=== PATIENT | male | born 1935 | race African-American/Black ===

== ENCOUNTER 2019-05-12 06:21 | Inpatient (IN) | payer MEDICARE, BC ==
[2019-05-12] VITALS (21 sets, daily range): BP systolic 128–160; BP diastolic 69–120
[~2019-05-12] VITALS: Ht 185.4 cm; Wt 110.7 kg
[~2019-05-12 06:21] MED LIST: CARVEDILOL PO; CELADRIN; CRESTOR PO; DOXAZOSIN; FURO-152 PO; GLUC100017 PO; IRON PO; LACT1CAP76 PO; LISINOPRIL; LORA1TAB PO; MULTIVITAMIN PO; ONGLYZA PO; PAROXETINE; RANITIDINE; SOTALOL PO; UBID300C PO; VITAMIN E; [UNRECOGNIZED DRUG - CODE] PO
[2019-05-12] MEDS ORDERED: LIDOCAINE HCL 1% 20ML VIAL (Pyxis) INJ ONE (07:31)
[2019-05-12] MEDS ORDERED: IODIXANOL 320MG/ML 100 ML BOTTLE IV ONE (07:31)
[2019-05-12] MEDS ORDERED: FENTANYL CITRATE/PF 50MCG/ML 2ML VIAL ONE (08:29)
[2019-05-12] MEDS ORDERED: MIDAZOLAM HCL 2 MG/2 ML VIAL ONE ×2 (08:29→09:32)
[2019-05-12] MEDS ORDERED: LORA-250 PO (08:42)
[2019-05-12] MEDS ORDERED: ASPI-1497 PO (08:42)
[2019-05-12] MEDS ORDERED: LINA5TAB PO (08:42)
[2019-05-12] MEDS ORDERED: DOXA1TAB2 PO (08:42)
[2019-05-12] MEDS ORDERED: METO25TA6 PO (08:42)
[2019-05-12] MEDS ORDERED: MAGN500C4 PO (08:42)
[2019-05-12] MEDS ORDERED: GABA-531 PO (08:42)
[2019-05-12] MEDS ORDERED: NEPVIT PO (08:42)
[2019-05-12] MEDS ORDERED: ROSU20TA2 PO (08:42)
[2019-05-12] MEDS ORDERED: DULO30CA2 PO (08:42)
[2019-05-12] MEDS ORDERED: CHOL200077 PO (08:42)
[2019-05-12] MEDS ORDERED: LOSA25TA26 PO (08:42)
[2019-05-12] MEDS ORDERED: GLIM2TAB30 PO (08:42)
[2019-05-12] MEDS ORDERED: IOHEXOL-300 100 ML BOTTLE ONE (09:20)
[2019-05-12] MEDS ORDERED: CLOPIDOGREL 75MG TABLET ONE (09:50)
[2019-05-12] MEDS ORDERED: ASPIRIN 325MG EC TABLET PO ONE (09:51)
[2019-05-12] MEDS ORDERED: ACETAMINOPHEN 325MG TABLET PO PRN (10:15)
[2019-05-12] MEDS ORDERED: ATROPINE SULFATE 1MG/10ML SYR IV PRN (10:15)
[2019-05-12] MEDS ORDERED: NICARDIPINE 100MCG/ML 10ML VIAL (CATH LAB) IV ONE (10:18)
[2019-05-12] MEDS ORDERED: NITROGLYCERIN 50MCG/ML 10ML VIAL (CATH LAB) IV ONE (10:18)
[2019-05-12] MEDS ORDERED: HEPARIN SODIUM 1,000 UNIT/1ML VIAL IV ONE (10:18)
[2019-05-12] MEDS ORDERED: DEXTROSE 50% WATER 50ML SYRINGE IV PRN (13:45)
[2019-05-12] MEDS ORDERED: ACETAMINOPHEN 325MG TABLET PO NR (15:00)
[2019-05-12] MEDS: BLOOD SUGAR DIAGNOSTIC STRIP TEST SCH ×2 (16:33→20:51)
[2019-05-12] MEDS: INSULIN LISPRO 100 UNITS/ML SUBCUT SCH ×2 (16:33→20:51)
[2019-05-13 02:35] VITALS: BP 157/87
[2019-05-13 04:35] VITALS: BP 142/71
[2019-05-13] MEDS: BLOOD SUGAR DIAGNOSTIC STRIP TEST SCH (05:57)
[2019-05-13 06:50] LABS: BASOPHILS % 0.4 % (0.0-2.0); EOSINOPHILS % 3.4 % (0.0-5.0); HEMATOCRIT. 31.5 % (42.0-52.0); HEMOGLOBIN. 10.4 g/dL (14.0-18.0); LYMPHOCYTES % 23.8 % (20.0-50.0); MEAN CORPUSCULAR HEMOGLOBIN 30.8 pg (28.0-32.0); MEAN CORPUSCULAR VOLUME 93.2 fL (80.0-94.0); MEAN PLATELET VOLUME 7.9 fl (7.4-10.4); MONOCYTES % 9.4 % (2.0-8.0); PLATELET 108 x1000/uL (130-400); RED BLOOD CELL COUNT 3.38 mill/uL (4.7-6.1); RED CELL DISTRIBUTION WIDTH 12.9 % (11.6-14.6)
[2019-05-13 06:56] VITALS: BP 141/95
[2019-05-13] MEDS: INSULIN LISPRO 100 UNITS/ML SUBCUT SCH (07:20)
[2019-05-13 08:00] VITALS: BP 165/90
[2019-05-13] MEDS ORDERED: CLOPIDOGREL 75MG TABLET PO SCH (09:00)
[2019-05-13] MEDS ORDERED: ASPIRIN 325MG TABLET PO SCH (09:00)
[2019-05-13 10:00] VITALS: BP 140/81
[2019-05-13 10:42] VITALS: BP 140/81
== END 2019-05-13 13:00 | disposition home or self-care (01) | DRG 247 ==
LOC: CCL 06:21 → 3WST 06:22
PROVIDERS: ADMIT Specialist; ATTEND Specialist
PROC: 027034Z Dilation of Coronary Artery, One Artery with Drug-eluting Intraluminal Device, Percutaneous Approach (ICD-10-PCS; principal; 2019-05-12)
PROC: 4A023N7 Measurement of Cardiac Sampling and Pressure, Left Heart, Percutaneous Approach (ICD-10-PCS; 2019-05-12)
PROC: B211YZZ Fluoroscopy of Multiple Coronary Arteries using Other Contrast (ICD-10-PCS; 2019-05-12)
PROC: B213YZZ Fluoroscopy of Multiple Coronary Artery Bypass Grafts using Other Contrast (ICD-10-PCS; 2019-05-12)
DX: T82.855A Stenosis of coronary artery stent, initial encounter (principal); I25.110 Atherosclerotic heart disease of native coronary artery with unstable angina pectoris; E78.5 Hyperlipidemia, unspecified; I25.5 Ischemic cardiomyopathy; N18.9 Chronic kidney disease, unspecified; E66.09 Other obesity due to excess calories; Y84.0 Cardiac catheterization as the cause of abnormal reaction of the patient, or of later complication, without mention of misadventure at the time of the procedure; Y92.234 Operating room of hospital as the place of occurrence of the external cause; E11.22 Type 2 diabetes mellitus with diabetic chronic kidney disease; I13.10 Hypertensive heart and chronic kidney disease without heart failure, with stage 1 through stage 4 chronic kidney disease, or unspecified chronic kidney disease; I25.2 Old myocardial infarction; Z85.038 Personal history of other malignant neoplasm of large intestine; Z95.810 Presence of automatic (implantable) cardiac defibrillator; Z79.899 Other long term (current) drug therapy; Z79.84 Long term (current) use of oral hypoglycemic drugs; Z82.49 Family history of ischemic heart disease and other diseases of the circulatory system; Z82.3 Family history of stroke; Z95.1 Presence of aortocoronary bypass graft; Z68.32 Body mass index [BMI] 32.0-32.9, adult
CPT/HCPCS: 36415; 80048; 82962; 85025; 85347; 92928; 93459; C1725; C1760; C1769; C1874; C1887; C1893; J1644; J2250; J3010; J3490; Q9967

== ENCOUNTER → 2021-12-27 | Day surgery (SDC) | payer MEDICARE, BC ==
[~2021-12-27] VITALS: Ht 185 cm; Wt 92.5 kg
[~2021-12-27] MED LIST changes: +ACETAMINOPHEN 325MG TABLET PO PRN; +ASPI-1497 PO; +ATROPINE SULFATE 1MG/10ML SYR IV PRN; -CARVEDILOL PO; -CELADRIN; +CHOL200077 PO; -CRESTOR PO; +DOXA1TAB2 PO; -DOXAZOSIN; +DULA1.5P SQ; +DULO30CA2 PO; +FENTANYL CITRATE/PF 50MCG/ML 2ML VIAL ONE; -FURO-152 PO; +GABA-529 PO; +GABA-532 PO; +GLIM2TAB30 PO; -GLUC100017 PO; +HEPARIN SODIUM 1,000 UNIT/1ML VIAL IV ONE; +IODIXANOL 320MG/ML 100 ML BOTTLE IV ONE; -IRON PO; -LACT1CAP76 PO; +LIDOCAINE HCL/PF 2% 20MG/ML 5 ML/VIAL ONE; +LINA5TAB PO; -LISINOPRIL; +LORA-250 PO; -LORA1TAB PO; +LOSA25TA26 PO; +MAGN500C4 PO; +METO25TA6 PO; +MIDAZOLAM HCL 2 MG/2 ML VIAL ONE; -MULTIVITAMIN PO; +NEPVIT PO; +NICARDIPINE 100MCG/ML 10ML VIAL (CATH LAB) IV ONE; +NITROGLYCERIN 50MCG/ML 10ML VIAL (CATH LAB) IV ONE; +ONDANSETRON HCL 4MG/2ML INJ IV PRN; -ONGLYZA PO; -PAROXETINE; -RANITIDINE; +ROSU20TA2 PO; -SOTALOL PO; -UBID300C PO; -VITAMIN E; -[UNRECOGNIZED DRUG - CODE] PO
== END | disposition home or self-care (01) ==
LOC: CCL 06:24
PROVIDERS: ATTEND Specialist
DX: R94.39 Abnormal result of other cardiovascular function study (principal); R07.9 Chest pain, unspecified; I25.10 Atherosclerotic heart disease of native coronary artery without angina pectoris; I12.9 Hypertensive chronic kidney disease with stage 1 through stage 4 chronic kidney disease, or unspecified chronic kidney disease; E11.22 Type 2 diabetes mellitus with diabetic chronic kidney disease; E78.5 Hyperlipidemia, unspecified; N18.9 Chronic kidney disease, unspecified; Z79.899 Other long term (current) drug therapy; Z95.1 Presence of aortocoronary bypass graft; Z95.5 Presence of coronary angioplasty implant and graft; Z95.810 Presence of automatic (implantable) cardiac defibrillator; Z98.890 Other specified postprocedural states; Z79.82 Long term (current) use of aspirin; Z87.891 Personal history of nicotine dependence; Z88.8 Allergy status to other drugs, medicaments and biological substances
CPT/HCPCS: 93455; C1760; C1769; C1887; C1893; J1644; J2250; J3010; J3490; Q9967